=== PATIENT | male | born 1975 | race Caucasian/White ===

== ENCOUNTER 2016-10-29 12:52 | Emergency (ER) | payer BC, OTHER ==
[~2016-10-29] VITALS: Ht 180.3 cm; Wt 109.8 kg
[~2016-10-29 12:52] MED LIST: ALEGRA PO; ASCO500T45 PO; CARB300C PO; CHOL100037 PO; LACO100T PO; LUTE1CAP PO; ROSU10TA PO
[2016-10-29 13:38] VITALS: BP 118/73
--- NOTE | 2016-10-29 16:09 | NUR ---
Patient ambulated to 3
--- NOTE | 2016-10-29 16:09 | NUR ---
PATIENT PRESENTS TO ED WITH BILATERAL LEG PAIN FROM KNEES UP TO THIGHS X 2 WKS-- WORSE AT NIGHT---NO DISCOLORATION, NO SWELLING, NO RECENT INJURY, DENIES RECENT GRAND MAL SEIZURE ACTIVITY PT STATES I DONT IT THE CELLULITIS, I PUT BENGAY ON IT. DENIES N/V/D; SKIN IS PINK/WARM/DRY; AAOX4 WITH EVEN AND STEADY GAIT; LUNGS CLEAR BL; HR EVEN AND REGULAR; PT DENIES ANY FEVER, CP, SOB, OR COUGH AT THIS TIME; PATIENT STATES PAIN OF 6/10 AT THIS TIME; PATIENT POSITIONED FOR COMFORT; HOB ELEVATED; BEDRAILS UP X2; BED DOWN. ER MD MADE AWARE OF PT STATUS.
--- NOTE | 2016-10-29 16:25 | NUR ---
PA AT BEDSIDE
--- NOTE | 2016-10-29 16:25 | NUR ---
DR. BERMUDEZ AT BEDSIDE
[2016-10-29] MEDS ORDERED: traMADol 50 MG TAB PO ONE (16:30)
[2016-10-29 16:44] LABS: BASOPHILS # (AUTO) 0.1 K/uL (0.00-0.22); BASOPHILS % (AUTO) 1.8 % (0.0-2.0); EOSINOPHILS # (AUTO) 0.2 K/uL (0-0.4); EOSINOPHILS % (AUTO) 4.3 % (0.0-4.0); HEMATOCRIT 50.3 % (36-52); HEMOGLOBIN 16.8 g/dL (12.0-18.0); LYMPHOCYTES # (AUTO) 1.4 K/uL (2.0-11.5); LYMPHOCYTES % (AUTO) 29.3 % (20.5-51.1); MEAN CORPUSCULAR HEMOGLOBIN 32 pg (27-31); MEAN CORPUSCULAR HGB CONC 33 g/dL (33-37); MEAN CORPUSCULAR VOLUME 95 fL (80-94); MONOCYTES # (AUTO) 0.3 K/uL (0.8-1.0); MONOCYTES % (AUTO) 6.4 % (1.7-9.3); NEUTROPHILS # (AUTO) 2.6 K/uL (1.8-7.7); NEUTROPHILS % (AUTO) 58.2 % (42.2-75.2); PLATELET COUNT (AUTO) 253 K/uL (140-450); RED BLOOD CELL COUNT(AUTO) 5.31 MIL/uL (4.20-6.10); RED CELL DISTRIBUTION WIDTH 12.4 % (11.6-13.7); WHITE BLOOD COUNT (AUTO) 4.6 K/uL (4.8-10.8)
[2016-10-29 17:00] LABS: ANION GAP 12.8 (8-16); CALCIUM 9.2 mg/dL (8.5-10.1); CARBON DIOXIDE 29.3 mmol/L (21-32); CREATININE 0.9 mg/dL (0.6-1.3); POTASSIUM 4.1 mmol/L (3.5-5.1)
[2016-10-29 17:04] LABS: INR 1.1 (0.8-1.2); PARTIAL THROMBOPLASTIN TIME 33.4 secs (22-35.6); PROTHROMBIN TIME 10.8 secs (10.8-13.4)
[2016-10-29 17:06] LABS: ALBUMIN 4.6 g/dL (3.4-5.0); TOTAL BILIRUBIN 0.5 mg/dL (0.0-1.0); TOTAL PROTEIN, SERUM 8.2 g/dL (6.4-8.2)
--- NOTE | 2016-10-29 17:41 | NUR ---
DR. BERUMDEZ AT BEDSIDE
[2016-10-29 17:50] VITALS: BP 132/80
--- NOTE | 2016-10-29 17:51 | NUR ---
Patient discharged with v/s stable. Written and verbal after care instructions given and explained. Patient alert, oriented and verbalized understanding of instructions. Ambulatory with steady gait. All questions addressed prior to discharge. ID band removed. Patient advised to follow up with PMD. Rx of TRAMADOL given. Patient educated on indication of medication including possible reaction and side effects. Opportunity to ask questions provided and answered.ENCOURAGED FLUID INTAKE AND PT AGREED WITH IT.
== END 2016-10-29 17:51 | disposition home or self-care (01) ==
LOC: MED 12:52
DX: S76.912A Strain of unspecified muscles, fascia and tendons at thigh level, left thigh, initial encounter (principal); S76.911A Strain of unspecified muscles, fascia and tendons at thigh level, right thigh, initial encounter; I10 Essential (primary) hypertension; E78.00 Pure hypercholesterolemia, unspecified; H91.92 Unspecified hearing loss, left ear; X58.XXXA Exposure to other specified factors, initial encounter; Y93.89 Activity, other specified; Y92.89 Other specified places as the place of occurrence of the external cause; Y99.8 Other external cause status
CPT/HCPCS: 36415; 80053; 82550; 85025; 85610; 85730; 99284

== ENCOUNTER 2017-09-06 20:23 | Inpatient (IN) | payer OTHER ==
[~2017-09-06] VITALS: Ht 185.4 cm; Wt 90.7 kg
[2017-09-06] MEDS: NACL 0.9% 1,000 ML IV SCH (01:20)
--- NOTE | 2017-09-06 20:23 | NUR ---
2018- PT MARISELA COSTELLO. TAKEN TO BED 10
--- NOTE | 2017-09-06 20:25 | NUR ---
Dr. Langston evaluating patient at bedside.
[2017-09-06 20:26] VITALS: BP_SYST 133; BP_SYST 74; BP_DIAS 74
--- NOTE | 2017-09-06 20:26 | NUR ---
Pt presents to ED via EMS. EMS reported x2 seizures at home lasting 20 min. Last seizure activity x1 month ago. Nothing given enrout. No seizure activiy enrout. Pt postical upon arrival and oriented at name only. ER MD at bedside for evaluation upon arival. Oxygen given per NC, seizure pads in place, bed in low position, staff at bedisde monitoring.
[2017-09-06] MEDS ORDERED: LORazepam 1 MG TAB PO ONE (20:30)
[2017-09-06 20:52] LABS: HEMATOCRIT 49.3 % (36-52); HEMOGLOBIN 16.6 g/dL (12.0-18.0); MEAN CORPUSCULAR HEMOGLOBIN 31 pg (27-31); MEAN CORPUSCULAR HGB CONC 34 g/dL (33-37); MEAN CORPUSCULAR VOLUME 92 fL (80-94); PLATELET COUNT (AUTO) 295 K/uL (140-450); RED BLOOD CELL COUNT(AUTO) 5.38 MIL/uL (4.20-6.10); RED CELL DISTRIBUTION WIDTH 12.5 % (11.6-13.7); WHITE BLOOD COUNT (AUTO) 13.2 K/uL (4.8-10.8)
[2017-09-06 20:58] LABS: ANION GAP 20.1 (8-16); CARBON DIOXIDE 22.1 mmol/L (21-32); CHLORIDE 103 mmol/L (98-107); CREATININE 1.1 mg/dL (0.7-1.3); GFR ARICAN-AMERICAN 95 mL/min (>90); GLUCOSE 128 mg/dL (74-106); POTASSIUM 3.2 mmol/L (3.5-5.1); SODIUM SERUM 142 mmol/L (136-145); UREA NITROGEN, BLOOD 9 mg/dL (7-18)
[2017-09-06 21:03] LABS: ALBUMIN 4.3 g/dL (3.4-5.0); ASPARTATE AMINOTRANSFERASE 19 U/L (15-37); TOTAL BILIRUBIN 0.6 mg/dL (0.0-1.0)
[2017-09-06 21:06] LABS: LYMPHOCYTES % (MANUAL) 5 % (20-46); MONOCYTES % (MANUAL) 2 % (5-12)
[2017-09-06 21:07] LABS: ACETAMINOPHEN < 0.5 ug/ml (10-30); SALICYLATE < 2.8 mg/dL (2.8-20.0)
[2017-09-06 21:09] LABS: PROTHROMBIN TIME 11.1 secs (10.8-13.4)
--- NOTE | 2017-09-06 21:19 | NUR ---
X-Ray at bedside.
[2017-09-06] MEDS ORDERED: POTASSIUM CHLORIDE 10 MEQ TABER PO ONE (22:20)
[2017-09-06] MEDS ORDERED: KCL 20 MEQ/WATER INJ PREMIX 100 ML IV ONE (22:30)
--- NOTE | 2017-09-06 22:55 | NUR ---
Pt states he cannot provide urine specimen at this time. YAEL GRIFFIN aware.
--- NOTE | 2017-09-06 23:07 | NUR ---
PT TAKEN TO CT
--- NOTE | 2017-09-06 23:17 | NUR ---
PT RETURN FROM CT
[2017-09-06] MEDS ORDERED: ACETAMINOPHEN 325 MG TAB PO PRN (23:50)
[2017-09-06] MEDS ORDERED: ONDANSETRON 4 MG/2 ML VIAL IVP PRN (23:50)
[2017-09-06] MEDS ORDERED: HYDROcodone/APAP 7.5/325 MG 1 TAB PO PRN (23:50)
--- NOTE | 2017-09-07 00:30 | NUR ---
[facility] AAOX3. NO DISTRESS NOTED. IV TO RIGHT AC #20G, SALINE LOCK. ON O2 AT 2L/MIN VIA NC. SKIN INTACT. ORIENTED PT TO ROOM. PT IS HARD OF HEARING ON LEFT EAR. FALL/SAFETY AND SEIZURE PRECAUTION IN PLACE. CALL LIGHT WITHIN REACH. WILL CONTINUE TO MONITOR.
--- NOTE | 2017-09-07 00:30 | NUR ---
Pt escorted to floor by Jeffery BURRIS and Mercedez HEBERT via [facility]
[2017-09-07 00:35] VITALS: BP 121/78
--- NOTE | 2017-09-07 00:37 | NUR ---
Report given to and care transfered to Shivam BURRIS
[2017-09-07 00:54] LABS: CHOL/HDL RATIO 4.3 (1-4.5); FREE T4 (FREE THYROXINE) 0.83 ng/dL (0.76-1.46); THYROID STIMULATING HORMONE 1.41 uIU/mL (0.34-3.74)
--- NOTE | 2017-09-07 02:30 | NUR ---
PT RESTING IN BED WITH EYES CLOSED BUT EASILY WAKES UP. NO S/S OF DISTRESS. NO SEIZURE ACTIVITY NOTED. SAFETY AND SEIZURE PRECAUTION IN PLACE. CALL LIGHT WITHIN REACH.
[2017-09-07] MEDS ORDERED: POTASSIUM CHLORIDE 10 MEQ TABER PO SCH (02:35)
--- NOTE | 2017-09-07 03:20 | NUR ---
DR. ESQUEDA ORDERED K DUR 40 MEQ TAB PO. INFORMED MD PT STATED THAT HE COULDN'T SWALLOW PILL AT THIS TIME. MD STATED HE WILL CHANGE THE ORDER.
[2017-09-07 04:00] VITALS: BP 125/71
--- NOTE | 2017-09-07 04:30 | NUR ---
SCD'S APPLIED. EXPLAINED TO PT THE USE OF SCD'S. PT VERBALIZED UNDERSTANDING.
--- NOTE | 2017-09-07 07:15 | NUR ---
ENDORSED PT TO DAY SHIFT NURSE. PT IN STABLE CONDITION.
[2017-09-07 07:22] LABS: BASOPHILS # (AUTO) 0.3 K/uL (0.00-0.22); BASOPHILS % (AUTO) 2.2 % (0.0-2.0); EOSINOPHILS # (AUTO) 0.1 K/uL (0-0.4); EOSINOPHILS % (AUTO) 0.9 % (0.0-4.0); HEMATOCRIT 43.6 % (36-52); HEMOGLOBIN 14.7 g/dL (12.0-18.0); LYMPHOCYTES # (AUTO) 1.1 K/uL (2.0-11.5); LYMPHOCYTES % (AUTO) 9.4 % (20.5-51.1); MEAN CORPUSCULAR HEMOGLOBIN 32 pg (27-31); MEAN CORPUSCULAR HGB CONC 34 g/dL (33-37); MEAN CORPUSCULAR VOLUME 94 fL (80-94); MONOCYTES # (AUTO) 0.7 K/uL (0.8-1.0); MONOCYTES % (AUTO) 6.4 % (1.7-9.3); NEUTROPHILS # (AUTO) 9.4 K/uL (1.8-7.7); NEUTROPHILS % (AUTO) 81.1 % (42.2-75.2); PLATELET COUNT (AUTO) 263 K/uL (140-450); RED BLOOD CELL COUNT(AUTO) 4.67 MIL/uL (4.20-6.10); RED CELL DISTRIBUTION WIDTH 12.8 % (11.6-13.7); WHITE BLOOD COUNT (AUTO) 11.6 K/uL (4.8-10.8)
--- NOTE | 2017-09-07 07:30 | NUR ---
RECEIVED PT ON BED AAOX3. NO SOB NOTED. NO C/O PAIN AT THIS TIME. IV TO RT AC PATENT AND INTACT. CHEST DIMINISHED AIR ENTRY TO TH BASES. PT ON OXYGEN AT 2LPM VIA NASAL CANNULA TIP. ABDOMEN SOFT, BOWEL SOUNDS PRESENT. NO EDEMA NOTED. INSTRUCTED PT TO CALL FOR ASSISTANCE, CALL LIGHT WITHIN REACH, PT VERBALIZED UNDERSTANDING. WILL CONTINUE TO MONITOR FOR SEIZURES.
[2017-09-07 07:37] LABS: ANION GAP 13.2 (8-16); CARBON DIOXIDE 26.4 mmol/L (21-32); CREATININE 0.9 mg/dL (0.7-1.3); POTASSIUM 3.6 mmol/L (3.5-5.1)
[2017-09-07 07:38] LABS: MAGNESIUM 1.9 mg/dL (1.8-2.4); PHOSPHORUS 3.6 mg/dL (2.5-4.9)
[2017-09-07 08:00] VITALS: BP 128/72
[2017-09-07] MEDS ORDERED: ZEAXANTHIN PO SCH (09:00)
[2017-09-07] MEDS ORDERED: NON-FORMULARY ITEM (Cholecalciferol (Vitamin D3) (Vitamin D3) 1,000 IU) PO SCH (09:00)
[2017-09-07] MEDS ORDERED: LUTEIN PO SCH (09:00)
[2017-09-07] MEDS: DOCUSATE SODIUM 100 MG GELCAP PO SCH ×2 (09:00→21:37)
[2017-09-07] MEDS: ASCORBIC ACID 500 MG TAB PO SCH (09:00)
[2017-09-07] MEDS ORDERED: NON-FORMULARY ITEM (Rosuvastatin Calcium* (Crestor*) 10 MG) PO SCH (09:00)
[2017-09-07] MEDS ORDERED: CARBAMAZEPINE 600 MG PO SCH (09:00)
[2017-09-07] MEDS: CHOLECALCIFEROL 1,000 IU TAB PO SCH (09:00)
[2017-09-07] MEDS ORDERED: ALEGRA PO SCH (09:00)
[2017-09-07] MEDS ORDERED: ALBUTEROL SULFATE/IPRATROPIU 3 ML SOL IH PRN (10:05)
--- NOTE | 2017-09-07 10:45 | NUR ---
URINE SPECIMEN COLLECTED AND SENT TO LAB FOR UDS.
[2017-09-07 12:00] VITALS: BP 116/77
[2017-09-07] MEDS ORDERED: ESLI800T PO (12:01)
[2017-09-07] MEDS ORDERED: QUET25TA PO (12:01)
[2017-09-07 12:40] LABS: BARBITURATE, URINE NEG. ng/ml (NEG <=200); BENZODIAZEPINE, URINE NEG. ng/mL (NEG <=200); CANNABINOID, URINE NEG. ng/mL (NEG <=50); COCAINE, URINE NEG. ng/mL (NEG <=300); OPIATE, URINE NEG. ng/mL (NEG <=2000); PHENCYCLIDINE SCREEN,URINE NEG. ng/mL (NEG <=25)
[2017-09-07] MEDS ORDERED: LACO200T PO (13:30)
[2017-09-07] MEDS: BENZOCAINE 20% 57 GM CAN MC PRN ×2 (13:40→18:12)
[2017-09-07] MEDS ORDERED: PATIENTS OWN TABLET PO SCH (13:45)
--- NOTE | 2017-09-07 15:00 | NUR ---
PT AMBULATING TO THE HALLWAY COUPLE TIME WITH HIS SOFTWARE INSTALLATION ENGINEER, PT WALKS STEADY WITH STANDBY ASSIST. ACTIVITY TOLERATED WELL. NO SOB NOTED. NO SEIZURE ACTIVITY NOTED.
[2017-09-07 16:00] VITALS: BP 104/68
--- NOTE | 2017-09-07 18:05 | NUR ---
PT CONSUMED 25% OF PUREE DIET SERVED FOR DINNER.
[2017-09-07] MEDS: NACL 0.9% 1,000 ML IV SCH (19:00)
--- NOTE | 2017-09-07 19:10 | NUR ---
PT AWAKE. NO SOB NOTED. NO COMPLAINTS MADE AT THIS TIME. ENDORSED TO NEXT SHIFT NURSE FOR CONTINUITY OF CARE.
--- NOTE | 2017-09-07 19:12 | NUR ---
RECEIVED REPORT FROM DAY SHIFT NURSE. PT SITTING ON BED AAOX3. NO DISTRESS NOTED. IV TO RIGHT AC #20G, NS AT 50 ML/HR. DISCUSSED PLAN OF CARE, PT VERBALIZED UNDERSTANDING. FALL AND SEIZURE PRECAUTION IN PLACE. CALL LIGHT WITHIN REACH. WILL CONTINUE TO MONITOR.
[2017-09-07 20:00] VITALS: BP 109/67
--- NOTE | 2017-09-07 20:00 | NUR ---
PT WALKING IN THE HALLWAY WITH A FRIEND. NO S/S OF DISTRESS NOTED.
[2017-09-07] MEDS ORDERED: ESLICARBAZEPINE ACETATE 800 MG PO SCH (21:00)
[2017-09-07] MEDS ORDERED: NON-FORMULARY ITEM (Lacosamide (Vimpat) 200 MG) PO SCH ×2 (21:00)
[2017-09-07] MEDS: QUEtiapine FUMARATE 25 MG TAB PO SCH (21:36)
[2017-09-07] MEDS: ATORVASTATIN 20 MG TAB PO SCH (21:36)
[2017-09-07] MEDS: VIMPAT 200MG TABLET PO SCH (21:37)
[2017-09-07] MEDS: APTIOM 800MG TAB PO SCH (21:37)
--- NOTE | 2017-09-07 21:38 | NUR ---
PT REFUSED COLACE. PT STATED HE DOESN'T NEED IT. MADE AWARE.
[2017-09-08] VITALS: BP 112/68
--- NOTE | 2017-09-08 00:20 | NUR ---
PT RESTING IN BED WITH EYES CLOSED BUT EASILY AROUSABLE. RESPIRATION EQUAL, EVEN AND UNLABORED. NO S/S OF PAIN OR DISCOMFORT. NO SEIZURE ACTIVITY NOTED. CALL LIGHT WITHIN REACH.
--- NOTE | 2017-09-08 03:30 | NUR ---
PT SLEEPING BUT WAKES EASILY. NO ACUTE DISTRESS NOTED. SAFETY AND SEIZURE PRECAUTION IN PLACE.
[2017-09-08 04:00] VITALS: BP 118/69
--- NOTE | 2017-09-08 05:50 | NUR ---
PT SLEEPING BUT AROUSABLE. NO S/S OF PAIN OR DISCOMFORT. NO S/S OF RESPIRATORY DISTRESS NOTED. JUANITO LIGHT WITHIN REACH.
--- NOTE | 2017-09-08 07:15 | NUR ---
ENDORSED PT TO DAY SHIFT NURSE. PT IN STABLE CONDITION.
[2017-09-08 08:00] VITALS: BP 120/76
--- NOTE | 2017-09-08 08:00 | NUR ---
ENDORSEMENT RECEIVED FROM FIGURE REFINISHER AND REPAIRER NURSE. PATIENT IS AWAKE, ALERT. RESPIRATION EVEN, UNLABOR ON ROOM AIR. SKIN DRY AND WARM. IV PATENT AND INTACT. DENIED PAIN, N/V, SEIZURE AT THIS TIME. PLAN OF CARE WAS DISCUSSED WITH PATIENT. BED AT LOW POSITION, PADDED SIDE RAILS, CALL LIGHT WITHIN REACH
[2017-09-08] MEDS: ZEAXANTHIN PO SCH (08:44)
[2017-09-08] MEDS: LUTEIN PO SCH (08:44)
[2017-09-08] MEDS: CHOLECALCIFEROL 1,000 IU TAB PO SCH (08:44)
[2017-09-08] MEDS: DOCUSATE SODIUM 100 MG GELCAP PO SCH ×2 (08:44→20:21)
[2017-09-08] MEDS: ASCORBIC ACID 500 MG TAB PO SCH (08:44)
[2017-09-08] MEDS: FEXOFENADINE 180 MG PO SCH (08:45)
[2017-09-08] MEDS: VIMPAT 200MG TABLET PO SCH ×2 (08:45→20:31)
--- NOTE | 2017-09-08 10:15 | NUR ---
PATIENT HAS BEEN SCREENED AND CATEGORIZED MODERATE NUTRITION RISK. PATIENT WILL BE SEEN WITHIN 3-5 DAYS OF ADMISSION. 09/08/17-09/10/[address]
[2017-09-08 10:26] LABS: PHOSPHORUS 2.8 mg/dL (2.5-4.9)
[2017-09-08 10:38] LABS: BASOPHILS # (AUTO) 0.2 K/uL (0.00-0.22); BASOPHILS % (AUTO) 2.6 % (0.0-2.0); EOSINOPHILS # (AUTO) 0.2 K/uL (0-0.4); EOSINOPHILS % (AUTO) 2.7 % (0.0-4.0); HEMOGLOBIN 14.2 g/dL (12.0-18.0); LYMPHOCYTES # (AUTO) 1.5 K/uL (2.0-11.5); LYMPHOCYTES % (AUTO) 19.5 % (20.5-51.1); MEAN CORPUSCULAR HEMOGLOBIN 31 pg (27-31); MEAN CORPUSCULAR HGB CONC 34 g/dL (33-37); MEAN CORPUSCULAR VOLUME 93 fL (80-94); MONOCYTES # (AUTO) 0.5 K/uL (0.8-1.0); MONOCYTES % (AUTO) 6.8 % (1.7-9.3); NEUTROPHILS # (AUTO) 5.5 K/uL (1.8-7.7); NEUTROPHILS % (AUTO) 68.4 % (42.2-75.2); PLATELET COUNT (AUTO) 224 K/uL (140-450); RED BLOOD CELL COUNT(AUTO) 4.55 MIL/uL (4.20-6.10); RED CELL DISTRIBUTION WIDTH 12.6 % (11.6-13.7); WHITE BLOOD COUNT (AUTO) 7.9 K/uL (4.8-10.8)
[2017-09-08 12:00] VITALS: BP 112/70
--- NOTE | 2017-09-08 12:11 | NUR ---
PATIENT IS SLEEPING COMFORTABLY,EASILY AROUNSABLE. RESPIRATION EVEN, UNLABOR ON ROOM AIR. DENIED PAIN, SEIZURE AT THIS TIME. NO DISTRESS NOTED. VS WAS TAKEN. FAMILY AT BEDSIDE. CALL LIGHT WITHIN REACH
--- NOTE | 2017-09-08 15:24 | NUR ---
PATIENT IS SLEEPING COMFORTABLY. RESPIRATION EVEN, UNLABOR ON ROOM AIR. NO DISTRESS NOTED AT THIS TIME. CALL LIGHT WITHIN REACH
[2017-09-08 16:00] VITALS: BP 104/68
[2017-09-08] MEDS: NACL 0.9% 1,000 ML IV SCH (16:07)
--- NOTE | 2017-09-08 18:42 | NUR ---
PATIENT IS AWAKE, ALERT, SITTING IN BED. RESPIRATION EVEN, UNLABOR ON ROOM AIR. DENIED PAIN, N/V AT THIS TIME. NO DISTRESS NOTED. IV PATENT AND INTACT. CALL LIGHT WITHIN REACH
--- NOTE | 2017-09-08 19:22 | NUR ---
ENDORSEMENT GIVEN TO THE SUBASSEMBLER NURSE. PATIENT IS STABLE AT THIS TIME
--- NOTE | 2017-09-08 19:23 | NUR ---
RECEIVED HANDOFF REPORT FROM AM RN. PATIENT A&OX4. PATIENT DENIES PAIN. IV SITE PATENT AND INTACT. NO SIGNS OR SYMPTOMS OF ACUTE DISTRESS NOTED. CAREGIVER AT BEDSIDE. SAFETY MEASURES ENSURED. CALL LIGHT WITHIN REACH. WILL CONTINUE TO MONITOR.
[2017-09-08 20:00] VITALS: BP 110/72
[2017-09-08] MEDS: ATORVASTATIN 20 MG TAB PO SCH (20:21)
[2017-09-08] MEDS: QUEtiapine FUMARATE 25 MG TAB PO SCH (20:21)
[2017-09-08] MEDS: APTIOM 800MG TAB PO SCH (20:22)
--- NOTE | 2017-09-08 20:26 | NUR ---
PM MEDS GIVEN WITH EDUCATION. PATIENT VERBALIZED UNDERSTANDING. PATIENT TOLERATED WELL. NO SIGNS OR SYMPTOMS OF ACUTE DISTRESS NOTED. CALL LIGHT WITHIN REACH. WILL CONTINUE TO MONITOR.
[2017-09-09] VITALS: BP 106/71
[2017-09-09 04:00] VITALS: BP 115/86
[2017-09-09 06:54] LABS: BASOPHILS # (AUTO) 0.2 K/uL (0.00-0.22); EOSINOPHILS # (AUTO) 0.3 K/uL (0-0.4); EOSINOPHILS % (AUTO) 4.3 % (0.0-4.0); HEMATOCRIT 39.7 % (36-52); HEMOGLOBIN 13.8 g/dL (12.0-18.0); LYMPHOCYTES # (AUTO) 2.1 K/uL (2.0-11.5); LYMPHOCYTES % (AUTO) 26.3 % (20.5-51.1); MEAN CORPUSCULAR HEMOGLOBIN 32 pg (27-31); MEAN CORPUSCULAR HGB CONC 35 g/dL (33-37); MEAN CORPUSCULAR VOLUME 92 fL (80-94); MONOCYTES # (AUTO) 0.6 K/uL (0.8-1.0); MONOCYTES % (AUTO) 8.1 % (1.7-9.3); NEUTROPHILS # (AUTO) 4.6 K/uL (1.8-7.7); NEUTROPHILS % (AUTO) 58.3 % (42.2-75.2); PLATELET COUNT (AUTO) 224 K/uL (140-450); RED BLOOD CELL COUNT(AUTO) 4.31 MIL/uL (4.20-6.10); RED CELL DISTRIBUTION WIDTH 12.3 % (11.6-13.7); WHITE BLOOD COUNT (AUTO) 7.8 K/uL (4.8-10.8)
[2017-09-09 07:21] LABS: ANION GAP 12.3 (8-16); CARBON DIOXIDE 30.2 mmol/L (21-32); CREATININE 0.8 mg/dL (0.7-1.3); POTASSIUM 3.5 mmol/L (3.5-5.1)
--- NOTE | 2017-09-09 07:22 | NUR ---
ENDORSED PLAN OF CARE TO AM RN. PATIENT IN STABLE CONDITION
[2017-09-09 07:31] LABS: MAGNESIUM 1.8 mg/dL (1.8-2.4)
[2017-09-09 08:00] VITALS: BP 119/65
--- NOTE | 2017-09-09 08:00 | NUR ---
ENDORSEMENT RECEIVED FROM MEDICAL OBSERVER NURSE. PATIENT IS SLEEPING COMFORTABLY, EASILY AROUSABLE. RESPIRATION EVEN, UNLABOR ON ROOM AIR. SKIN DRY AND WARM. IV PATENT AND INTACT. DENIED PAIN, SEIZURE AT THIS TIME. NO DISTRESS NOTED. PLAN OF CARE WAS DISCUSSED WITH PATIENT. BED AT LOW POSITION, PADDED SIDE RAILS. CALL LIGHT WITHIN REACH
[2017-09-09] MEDS: DOCUSATE SODIUM 100 MG GELCAP PO SCH (09:00)
[2017-09-09] MEDS: ASCORBIC ACID 500 MG TAB PO SCH (09:11)
[2017-09-09] MEDS: CHOLECALCIFEROL 1,000 IU TAB PO SCH (09:11)
[2017-09-09] MEDS: VIMPAT 200MG TABLET PO SCH (09:12)
[2017-09-09] MEDS: ZEAXANTHIN PO SCH (09:13)
[2017-09-09] MEDS: FEXOFENADINE 180 MG PO SCH (09:13)
[2017-09-09] MEDS: LUTEIN PO SCH (09:13)
--- NOTE | 2017-09-09 10:00 | NUR ---
PATIENT IS SLEEPING COMFORTABLY. RESPIRATION EVEN, UNLABOR ON ROOM AIR. NO DISTRESS NOTED AT THIS TIME. JUANITO LIGHT WITHIN REACH
--- NOTE | 2017-09-09 11:52 | NUR ---
DISCHARGE INSTRUCTION WAS GIVEN AND EXPLAINED TO THE PATIENT. PATIENT VERBALIZED UNDERSTANDING. IV WAS REMOVED, CATHETER INTACT, NO ACTIVE BLEEDING SEEN, PATIENT TOLERATED WELL. ALL HOME MEDICATIONS WERE RETURNED TO THE PATIENT. SHIPPING AND RECEIVING OPERATOR WAS REMOVED. Addendum: 09/09/17 at 1232 by Lyndsey Richards RN ID BAND WAS REMOVED. PATIENT WAS ESCORTED OUT BY STAFF AND CAREGIVER. PATIENT IS STABLE AT THIS TIME
[2017-09-09 12:00] VITALS: BP 120/70
== END 2017-09-09 12:30 | disposition home or self-care (01) | DRG 101 ==
LOC: MED 20:23 → MTU 23:49
PROVIDERS: ADMIT Family Medicine; ATTEND Family Medicine
DX: G40.409 Other generalized epilepsy and epileptic syndromes, not intractable, without status epilepticus (principal); R65.10 Systemic inflammatory response syndrome (SIRS) of non-infectious origin without acute organ dysfunction; E78.5 Hyperlipidemia, unspecified; E87.6 Hypokalemia; I10 Essential (primary) hypertension; Z91.19 Patient's noncompliance with other medical treatment and regimen; S00.532A Contusion of oral cavity, initial encounter; X58.XXXA Exposure to other specified factors, initial encounter; Y93.89 Activity, other specified; Y92.89 Other specified places as the place of occurrence of the external cause; Y99.8 Other external cause status; Z80.9 Family history of malignant neoplasm, unspecified
CPT/HCPCS: 36415; 70450; 71045; 80048; 80053; 80156; 80305; 82140; 82150; 83036; 83690; 83735; 83880; 84100; 84439; 84443; 84484; 85025; 85610; 85730; 87081; 93005; 93880; 94640; 99285; C1758; G0480; G0482; J3480; J7030; J7620; Q0092